=== PATIENT | female | born 1985 | race Caucasian/White ===

== ENCOUNTER 2019-03-24 08:11 | Emergency (ER) | payer BC ==
[2019-03-24] MEDS ORDERED: Sodium Chloride 0.9% 1,000 ML IV STA (08:47)
[2019-03-24] MEDS ORDERED: Ondansetron 4 MG/2 ML SDV IVPUSH ONE (08:47)
[2019-03-24] MEDS ORDERED: Sodium Chloride 0.9% 10 ML Syringe FLUSH PRN ×2 (08:47→10:02)
[2019-03-24] MEDS ORDERED: HYDROmorphone 1 MG/ML Syringe IVPUSH ONE (08:52)
--- NOTE | 2019-03-24 09:39 | EDM.PDOC ---
ED HPI GENERAL MEDICAL PROBLEM - General Chief Complaint: Abdominal Pain Stated Complaint: ABDOMINAL PAIN Time Seen by Provider: 03/24/19 08:35 Source of Information: Reports: Patient History Limitations: Reports: No Limitations - History of Present Illness INITIAL COMMENTS - FREE TEXT/NARRATIVE: The patient presents with abdominal pain and nausea. This has been going on for over a week. She was seen at the walk in clinic yesterday and the pain is much worse. She has nausea but no vomiting. She has no fever, chills, cough, chest pain or shortness of breath. She still has her gallbladder and appendix. She does not think she is . She had a tubal ligation. She has no dysuria or diarrhea. Onset: Gradual Duration: Week(s): (1) Location: Reports: Abdomen Quality: Reports: Sharp Severity: Severe Improves with: Reports: None Worsens with: Reports: None Associated Symptoms: Reports: Nausea/Vomiting. Denies: Chest Pain, Fever/Chills , Headaches, Shortness of Breath Abdomen Pain Score (Numeric/FACES): 10 - Related Data Allergies Allergy/AdvReac Type Severity Reaction Status Date / Time iodine Allergy Mild Hives Verified 03/24/19 10:19 Home Meds: Home Meds . [No Known Home Meds] 03/24/19 [History] Past Medical History - Past Surgical History HEENT Surgical History: Reports: Adenoidectomy, Tonsillectomy GI Surgical History: Reports: Other (See Below) Other GI Surgeries/Procedures: splenectomy Female Surgical History: Reports: Tubal Ligation Social & Family History - Tobacco Use Smoking Status *Q: Never Smoker - Caffeine Use Caffeine Use: Reports: Coffee - Recreational Drug Use Recreational Drug Use: No ED ROS GENERAL - Review of Systems Review Of Systems: See Below Constitutional: Reports: No Symptoms HEENT: Reports: No Symptoms Respiratory: Reports: No Symptoms Cardiovascular: Reports: No Symptoms Endocrine: Reports: No Symptoms GI/Abdominal: Reports: Abdominal Pain, Nausea, Vomiting. Denies: Diarrhea : Reports: No Symptoms Musculoskeletal: Reports: No Symptoms ED EXAM, GI/ABD - Physical Exam Exam: See Below Exam Limited By: No Limitations General Appearance: Alert, Moderate Distress Ears: Normal External Exam Nose: Normal Inspection Head: Atraumatic, Normocephalic Neck: Normal Inspection Respiratory/Chest: No Respiratory Distress, Lungs Clear, Normal Breath Sounds Cardiovascular: Regular Rate, Rhythm, No Edema, No Murmur GI/Abdominal Exam: Soft, No Organomegaly, No Mass, Tender (Severe generalized tenderness) Course - Vital Signs Last Recorded V/S: Last Vital Signs Temp 98.8 F 03/24/19 08:35 Pulse 91 03/24/19 09:22 Resp 16 03/24/19 09:22 BP 109/65 03/24/19 09:22 Pulse Ox 95 03/24/19 09:22 - Orders/Labs/Meds Orders: Active Orders 24 hr Category Date Time Status Peripheral IV Care [RC] . DIRECTED Care 03/24/19 08:47 Active TWAN W/REFLEX [REF] Stat Lab 03/24/19 15:09 Received CBC W/O DIFF,HEMOGRAM [HEME] MOTH@0700 Lab 03/26/19 07:00 Ordered CBC W/O DIFF,HEMOGRAM [HEME] MOTH@0700 Lab 03/30/19 07:00 Ordered CBC W/O DIFF,HEMOGRAM [HEME] MOTH@0700 Lab 04/02/19 07:00 Ordered CBC W/O DIFF,HEMOGRAM [HEME] MOTH@0700 Lab 04/06/19 07:00 Ordered CBC W/O DIFF,HEMOGRAM [HEME] MOTH@0700 Lab 04/09/19 07:00 Ordered CBC W/O DIFF,HEMOGRAM [HEME] MOTH@0700 Lab 04/13/19 07:00 Ordered FACTOR V LEIDEN MUTATION [REF] Stat Lab 03/24/19 15:09 Received INR,PT,PROTHROMBIN TIME [COAG] Routine Lab 03/24/19 14:35 Ordered Heparin Sodium/D5W [Heparin 25,000 Units in D5W 500 ML] Med 03/24/19 14:45 Active 25,000 units in 500 ml IV TITRATE Sodium Chloride 0.9% [Saline Flush] Med 03/24/19 08:47 Active 10 ml FLUSH ASDIRECTED PRN Sodium Chloride 0.9% [Saline Flush] Med 03/24/19 10:02 Active 10 ml FLUSH ONETIME PRN ED Antiemetic Medication Reflex [OM.PC] Stat Oth 03/24/19 08:47 Ordered Peripheral IV Insertion Adult [OM.PC] Stat Oth 03/24/19 08:47 Ordered Medication Orders Heparin Sodium/Dextrose (Heparin 25,000 Units In D5w 500 Ml) 25,000 units in 500 mls @ 19.731 mls/hr IV TITRATE JUANJOSE; Protocol Last Admin: 03/24/19 14:48 Dose: 15 units/kg/hr, 19.731 mls/hr Sodium Chloride (Saline Flush) 10 ml FLUSH ASDIRECTED PRN PRN Reason: Keep Vein Open Last Admin: 03/24/19 08:58 Dose: 10 ml Sodium Chloride (Saline Flush) 10 ml FLUSH ONETIME PRN PRN Reason: IV FLUSH Last Admin: 03/24/19 10:24 Dose: 10 ml Labs: Laboratory Tests 03/24/19 03/24/19 03/24/19 Range/Units 08:50 08:50 08:50 WBC 10.69 H (3.98-10.04) K/mm3 RBC 4.28 (3.98-5.22) M/mm3 Hgb 12.0 (11.2-15.7) gm/dl Hct 36.7 (34.1-44.9) % MCV 85.7 (79.4-94.8) fl MCH 28.0 (25.6-32.2) pg MCHC 32.7 (32.2-35.5) g/dl RDW Std Deviation 50.6 H (36.4-46.3) fL Plt Count 388 H (182-369) K/mm3 MPV 10.4 (9.4-12.3) fl Neut % (Auto) 68.6 (34.0-71.1) % Lymph % (Auto) 16.7 L (19.3-51.7) % Placer % (Auto) 12.9 H (4.7-12.5) % Eos % (Auto) 1.0 (0.7-5.8) Baso % (Auto) 0.6 (0.1-1.2) % Neut # (Auto) 7.33 H (1.56-6.13) K/mm3 Lymph # (Auto) 1.79 (1.18-3.74) K/mm3 Placer # (Auto) 1.38 H (0.24-0.36) K/mm3 Eos # (Auto) 0.11 (0.04-0.36) K/mm3 Baso # (Auto) 0.06 (0.01-0.08) K/mm3 Manual Slide Review Normal smear Sodium 135 L (136-145) mEq/L Potassium 3.6 (3.5-5.1) mEq/L Chloride 101 (98-107) mEq/L Carbon Dioxide 18 L (21-32) mEq/L Anion Gap 19.6 H (5-15) BUN 9 (7-18) mg/dL Creatinine 0.7 (0.55-1.02) mg/dL Est Cr Clr Drug Dosing 92.10 mL/min Estimated GFR (MDRD) > 60 (>60) mL/min BUN/Creatinine Ratio 12.9 L (14-18) Glucose 119 H (74-106) mg/dL Calcium 8.8 (8.5-10.1) mg/dL Total Bilirubin 0.8 (0.2-1.0) mg/dL AST 21 (15-37) U/L ALT 23 (14-59) U/L Alkaline Phosphatase 78 (46-116) U/L Total Protein 8.0 (6.4-8.2) g/dl Albumin 3.4 (3.4-5.0) g/dl Globulin 4.6 gm/dL Albumin/Globulin Ratio 0.7 L (1-2) Lipase 95 (73-393) U/L HCG, Qual Negative (NEGATIVE) Urine Color (Yellow) Urine Appearance (Clear) Urine pH (5.0-8.0) Ur Specific [place] (1.005-1.030) Urine Protein (Negative) Urine Glucose (UA) (Negative) Urine Ketones (Negative) Urine Occult Blood (Negative) Urine Nitrite (Negative) Urine Bilirubin (Negative) Urine Urobilinogen (0.2-1.0) Ur Leukocyte Esterase (Negative) Urine RBC (0-5) /hpf Urine WBC (0-5) /hpf Ur Squamous Epith Cells (0-5) /hpf Urine Bacteria (FEW) /hpf Urine Mucus (FEW) /hpf 03/24/19 Range/Units 12:05 WBC (3.98-10.04) K/mm3 RBC (3.98-5.22) M/mm3 Hgb (11.2-15.7) gm/dl Hct (34.1-44.9) % MCV (79.4-94.8) fl MCH (25.6-32.2) pg MCHC (32.2-35.5) g/dl RDW Std Deviation (36.4-46.3) fL Plt Count (182-369) K/mm3 MPV (9.4-12.3) fl Neut % (Auto) (34.0-71.1) % Lymph % (Auto) (19.3-51.7) % Placer % (Auto) (4.7-12.5) % Eos % (Auto) (0.7-5.8) Baso % (Auto) (0.1-1.2) % Neut # (Auto) (1.56-6.13) K/mm3 Lymph # (Auto) (1.18-3.74) K/mm3 Placer # (Auto) (0.24-0.36) K/mm3 Eos # (Auto) (0.04-0.36) K/mm3 Baso # (Auto) (0.01-0.08) K/mm3 Manual Slide Review Sodium (136-145) mEq/L Potassium (3.5-5.1) mEq/L Chloride (98-107) mEq/L Carbon Dioxide (21-32) mEq/L Anion Gap (5-15) BUN (7-18) mg/dL Creatinine (0.55-1.02) mg/dL Est Cr Clr Drug Dosing mL/min Estimated GFR (MDRD) (>60) mL/min BUN/Creatinine Ratio (14-18) Glucose (74-106) mg/dL Calcium (8.5-10.1) mg/dL Total Bilirubin (0.2-1.0) mg/dL AST (15-37) U/L ALT (14-59) U/L Alkaline Phosphatase (46-116) U/L Total Protein (6.4-8.2) g/dl Albumin (3.4-5.0) g/dl Globulin gm/dL Albumin/Globulin Ratio (1-2) Lipase (73-393) U/L HCG, Qual (NEGATIVE) Urine Color Yellow (Yellow) Urine Appearance Clear (Clear) Urine pH 6.5 (5.0-8.0) Ur Specific [place] 1.010 (1.005-1.030) Urine Protein Negative (Negative) Urine Glucose (UA) Negative (Negative) Urine Ketones 2+ H (Negative) Urine Occult Blood Negative (Negative) Urine Nitrite Negative (Negative) Urine Bilirubin Negative (Negative) Urine Urobilinogen 0.2 (0.2-1.0) Ur Leukocyte Esterase Negative (Negative) Urine RBC 0-5 (0-5) /hpf Urine WBC 0-5 (0-5) /hpf Ur Squamous Epith Cells 0-5 (0-5) /hpf Urine Bacteria Many H (FEW) /hpf Urine Mucus Not seen (FEW) /hpf Meds: Medications Generic Name Dose Route Start Last Admin Trade Name José Miguel PRN Reason Stop Dose Admin Heparin Sodium/Dextrose 25,000 units in 500 mls @ 19.731 mls/hr 03/24/19 14: 45 03/24/19 14:48 Heparin 25,000 Units In D5w 500 Ml IV 15 units/kg/hr TITRATE JUANJOSE 19.731 mls/hr Administration Protocol 15 UNITS/KG/HR Sodium Chloride 10 ml 03/24/19 08:47 03/24/19 08:58 Saline Flush FLUSH 10 ml ASDIRECTED PRN Administration Keep Vein Open Sodium Chloride 10 ml 03/24/19 10:02 03/24/19 10:24 Saline Flush FLUSH 10 ml ONETIME PRN Administration IV FLUSH Discontinued Medications Generic Name Dose Route Start Last Admin Trade Name José Miguel PRN Reason Stop Dose Admin Diatrizoate Meglum/Diatrizoate Sod 120 ml 03/24/19 10:02 03/24/19 10:24 Gastrografin 37% PO 03/24/19 10:03 90 ml ONETIME ONE Administration Diphenhydramine HCl Confirm 03/24/19 10:15 03/24/19 10:24 Benadryl Administered 03/24/19 10:16 Not Given Dose 50 mg .ROUTE .STK-MED ONE Diphenhydramine HCl 50 mg 03/24/19 10:22 03/24/19 10:17 Benadryl IVPUSH 03/24/19 10:23 50 mg ONETIME ONE Administration Heparin Sodium (Porcine) 4,000 units 03/24/19 14:33 03/24/19 14:53 Heparin Sodium IVPUSH 03/24/19 14:34 4,000 units ONETIME ONE Administration Hydromorphone HCl 1 mg 03/24/19 08:52 03/24/19 08:58 Dilaudid IVPUSH 03/24/19 08:53 1 mg ONETIME ONE Administration Hydromorphone HCl 0.5 mg 03/24/19 12:22 03/24/19 12:59 Dilaudid IVPUSH 03/24/19 12:23 0.5 mg ONETIME ONE Administration Sodium Chloride 1,000 mls @ 1,000 mls/hr 03/24/19 08:47 03/24/19 08:58 Normal Saline IV 03/24/19 09:46 1,000 mls/hr .BOLUS STA Administration Iopamidol 100 ml 03/24/19 10:02 03/24/19 10:24 Isovue-300 (61%) IVPUSH 03/24/19 10:03 100 ml ONETIME ONE Administration Ondansetron HCl 4 mg 03/24/19 08:47 03/24/19 08:58 Zofran IVPUSH 03/24/19 08:48 4 mg ONETIME ONE Administration Warfarin Sodium 5 mg 03/24/19 14:35 03/24/19 14:46 Coumadin PO 03/24/19 14:36 5 mg ONETIME ONE Administration - Re-Assessments/Exams Free Text/Narrative Re-Assessment/Exam: 03/24/19 09:40 I ordered an IV NS 1L bolus, zofran 4mg IV, dilaudid 1mg IV, labs, UA and a CT of her abdomen and pelvis with IV and oral contrast. 03/24/19 14:36 Her WBC was slightly elevated at 10.69. Her Na was a little low at 135. Her anion gap is elevated at 19.6. Her lipase is normal. Her HCG is negative. Her UA is negative for UTI. Her CT shows inflammatory change off the inferior pancreas presumably representing pancreatitis. Please correlate if patient has correlating laboratory findings. Nonopacified superior mesenteric vein and portal vein despite delayed images. Difficult to exclude thrombosis. US could be obtained to make sure the portal vein is patent. Small hiatal hernia and other findings believed to be incidental. I ordered an US and that showed probable portal vein thrombosis with surrounding edema around the portal vein. This makes likelihood of superior mesenteric vein thrombosis more likely. CT study was reviewed and there is felt to be mesenteric congestion present. Previously noted suggestion of pancreatitis is the most likely etiology of the portal vein and superior mesenteric findings. I called Dr Ranada our hospitalist and he did not feel comfortable admitting the patient. I called [facility] in [place] and talked with Dr Fernandez and he accepted the patient. He wanted a heparin bolus and drip, coumadin, TWAN and factor V leidin. Departure - Departure Time of Disposition: 15:25 Disposition: DC/Tfer to Acute Hospital 02 Condition: Fair Clinical Impression: Portal vein thrombosis, Superior mesenteric vein thrombosis Pancreatitis Qualifiers: Chronicity: acute Pancreatitis type: unspecified pancreatitis type Acute pancreatitis complication: no infection or necrosis Qualified Code(s): K85.90 - Acute pancreatitis without necrosis or infection, unspecified - Discharge Information Referrals: PCP,None [Primary Care Provider] - Forms: ED Department Discharge Sepsis Event Note - Evaluation Sepsis Screening Result: No Definite Risk - Focused Exam Vital Signs: Vital Signs Temp Pulse Resp BP Pulse Ox 03/24/19 09:22 91 16 109/65 95 03/24/19 08:35 98.8 F 123 H 20 140/107 H 97 Date Exam was Performed: 03/24/19 Time Exam was Performed: 15:14 - My Orders Last 24 Hours: My Active Orders 03/24/19 08:47 Peripheral IV Care [RC] . DIRECTED Sodium Chloride 0.9% [Saline Flush] 10 ml FLUSH ASDIRECTED PRN ED Antiemetic Medication Reflex [OM.PC] Stat Peripheral IV Insertion Adult [OM.PC] Stat 03/24/19 10:02 Sodium Chloride 0.9% [Saline Flush] 10 ml FLUSH ONETIME PRN 03/24/19 14:35 INR,PT,PROTHROMBIN TIME [COAG] Routine 03/24/19 14:45 Heparin Sodium/D5W [Heparin 25,000 Units in D5W 500 ML] 25,000 units in 500 ml IV TITRATE 03/24/19 15:09 TWAN W/REFLEX [REF] Stat FACTOR V LEIDEN MUTATION [REF] Stat 03/26/19 07:00 CBC W/O DIFF,HEMOGRAM [HEME] MOTH@0700 03/30/19 07:00 CBC W/O DIFF,HEMOGRAM [HEME] MOTH@0700 04/02/19 07:00 CBC W/O DIFF,HEMOGRAM [HEME] MOTH@0700 04/06/19 07:00 CBC W/O DIFF,HEMOGRAM [HEME] MOTH@0700 04/09/19 07:00 CBC W/O DIFF,HEMOGRAM [HEME] MOTH@0700 04/13/19 07:00 CBC W/O DIFF,HEMOGRAM [HEME] MOTH@07 - Assessment/Plan Last 24 Hours: My Active Orders 03/24/19 08:47 Peripheral IV Care [RC] . DIRECTED Sodium Chloride 0.9% [Saline Flush] 10 ml FLUSH ASDIRECTED PRN ED Antiemetic Medication Reflex [OM.PC] Stat Peripheral IV Insertion Adult [OM.PC] Stat 03/24/19 10:02 Sodium Chloride 0.9% [Saline Flush] 10 ml FLUSH ONETIME PRN 03/24/19 14:35 INR,PT,PROTHROMBIN TIME [COAG] Routine 03/24/19 14:45 Heparin Sodium/D5W [Heparin 25,000 Units in D5W 500 ML] 25,000 units in 500 ml IV TITRATE 03/24/19 15:09 TWAN W/REFLEX [REF] Stat FACTOR V LEIDEN MUTATION [REF] Stat 03/26/19 07:00 CBC W/O DIFF,HEMOGRAM [HEME] MOTH@0700 03/30/19 07:00 CBC W/O DIFF,HEMOGRAM [HEME] MOTH@0700 04/02/19 07:00 CBC W/O DIFF,HEMOGRAM [HEME] MOTH@0704/06/19 07:00 CBC W/O DIFF,HEMOGRAM [HEME] MOTH@0700 04/09/19 07:00 CBC W/O DIFF,HEMOGRAM [HEME] MOTH@0700 04/13/19 07:00 CBC W/O DIFF,HEMOGRAM [HEME] MOTH@07
[2019-03-24] MEDS ORDERED: Diatrizoate Meglumine/Diatrizoate Sodium 37% 120 ML Bottle PO ONE (10:02)
[2019-03-24] MEDS ORDERED: Iopamidol 612 MG/ML 100 ML Bottle IVPUSH ONE (10:02)
[2019-03-24] MEDS ORDERED: diphenhydrAMINE 50 MG/ML SDV ONE (10:15)
[2019-03-24] MEDS ORDERED: diphenhydrAMINE 50 MG/ML SDV IVPUSH ONE (10:22)
--- NOTE | 2019-03-24 11:58 | CT ---
CT abdomen and pelvis Technique: Multiple axial sections were obtained from above the dome of the diaphragm inferiorly through the pubic symphysis. Intravenous contrast was utilized. Oral contrast is also noted. Delayed images were obtained through the abdomen and pelvis. Comparison: No prior abdominal imaging is available. Findings: Inflammatory change is seen inferior to the pancreatic head. Findings raise the possibility of pancreatitis. No portal vein opacification or superior mesenteric vein opacification is seen despite the delayed images. Difficult to exclude thrombosis within the superior mesenteric vein and portal vein. Small hiatal hernia is noted. Visualized lung bases show nothing acute. Slight intrahepatic biliary air is noted. Gallbladder contains no calcified gallstones. Kidneys show symmetric contrast enhancement without hydronephrosis or mass. Adrenal glands show no nodule. Aorta shows no aneurysm. No retroperitoneal adenopathy is seen. Appendix not visualized with certainty. No pelvic mass or adenopathy is seen. Delayed images show contrast excretion from both kidneys. Contrast is noted within the bladder. There is a filling defect noted within the right side of the bladder presumably due to debris. Impression: 1. Inflammatory change off the inferior pancreas presumably representing pancreatitis. Please correlate if patient has correlating laboratory findings. 2. Nonopacified superior mesenteric vein and portal vein despite delayed images. Difficult to exclude thrombosis. Ultrasound could be obtained to make sure the portal vein is patent. 3. Small hiatal hernia and other findings believed to be incidental. Diagnostic code #3 This report was dictated in [place] Standard Time
[2019-03-24] MEDS ORDERED: HYDROmorphone 0.5 MG/0.5 ML Syringe IVPUSH ONE (12:22)
--- NOTE | 2019-03-24 13:37 | US ---
Limited abdominal ultrasound: Multiple real-time images of the upper right abdomen were obtained. Comparison: Previous CT abdomen and pelvis study performed earlier on same day (10:20 AM) Portal vein is poorly seen and is believed to be thrombosed. Edema is noted around the portal vein. This makes the likelihood of superior mesenteric vein thrombosis highly likely. Pancreas remains a possibility as the etiology for this finding. When reviewing previous CT exam the mesenteric vessels appear to be congested. Liver is not optimally seen. Pancreas also poorly seen due to bowel gas. Inferior vena cava is patent. Impression: 1. Probable portal vein thrombosis with surrounding edema around the portal vein. This makes likelihood of superior mesenteric vein thrombosis more likely. 2. CT study was reviewed and there is felt to be mesenteric congestion present. 3. Previously noted suggestion of pancreatitis is the most likely etiology of the portal vein and superior mesenteric findings. Diagnostic code #5 This report was dictated in [place] Standard Time
[2019-03-24] MEDS ORDERED: Heparin Sodium 5,000 Units/ML Vial IVPUSH ONE (14:33)
[2019-03-24] MEDS ORDERED: Warfarin 5 MG Tab PO ONE (14:35)
[2019-03-24] MEDS ORDERED: Heparin Sodium/D5W 25,000 UNITS/500 ML BAG IV SCH (14:45)
== END 2019-03-24 15:20 ==
LOC: JD.ED 08:11
DX: I81 Portal vein thrombosis (principal); K55.069 Acute infarction of intestine, part and extent unspecified; K85.90 Acute pancreatitis without necrosis or infection, unspecified; D72.829 Elevated white blood cell count, unspecified; E87.1 Hypo-osmolality and hyponatremia; E87.2 Acidosis; K44.9 Diaphragmatic hernia without obstruction or gangrene; Z88.8 Allergy status to other drugs, medicaments and biological substances
CPT/HCPCS: 36415; 74177; 76705; 80053; 81001; 81241; 83690; 84703; 85025; 85610; 86038; 96361; 96365; 96375; 96376; 99285; A9270; J1170; J1200; J1644; J2405; J7030; Q9963; Q9967; 99284

== ENCOUNTER 2022-01-27 12:44 | Emergency (ER) | payer BC, OTHER ==
[2022-01-27] MEDS ORDERED: Sodium Chloride 0.9% 10 ML Syringe FLUSH PRN (14:51)
[2022-01-27] MEDS ORDERED: Ondansetron 4 MG/2 ML SDV IVPUSH ONE (14:51)
[2022-01-27] MEDS ORDERED: Sodium Chloride 0.9% 1,000 ML IV SCH (15:00)
[2022-01-27] MEDS ORDERED: HYDROmorphone 0.5 MG/0.5 ML Syringe IVPUSH ONE ×3 (15:47→21:50)
[2022-01-27 15:55] LABS: ESTIMATED GFR 116 mL/min (>60)
[2022-01-27] MEDS ORDERED: Iopamidol 612 MG/ML 100 ML Bottle IVPUSH ONE (17:38)
[2022-01-27] MEDS ORDERED: Sodium Chloride 0.9% 10 ML Syringe FLUSH ONE (17:38)
== END 2022-01-27 22:28 | disposition home or self-care (01) ==
LOC: JD.ED 12:44
DX: K85.80 Other acute pancreatitis without necrosis or infection (principal); K86.89 Other specified diseases of pancreas; Z86.16 Personal history of COVID-19
CPT/HCPCS: 36415; 74177; 74177-26; 76705; 76705-26; 80053; 81001; 83605; 83690; 83735; 84702; 85025; 86140; 87086; 96374; 96375; 96376; 99284-25; J1170; J2405; J3490; J7030; Q9967

== ENCOUNTER 2022-02-27 15:54 | Emergency (ER) | payer OTHER ==
[2022-02-27] MEDS ORDERED: Sodium Chloride 0.9% 10 ML Syringe FLUSH PRN (16:15)
[2022-02-27] MEDS ORDERED: Acetaminophen 325 MG Tab PO ONE (16:27)
[2022-02-27] MEDS ORDERED: Sodium Chloride 0.9% 1,000 ML IV ONE (16:36)
[2022-02-27] MEDS ORDERED: Ondansetron 4 MG/2 ML SDV IVPUSH ONE (16:36)
[2022-02-27 17:52] LABS: CORONAVIRUS COVID-19 NAA NEGATIVE (NEGATIVE)
== END 2022-02-27 19:06 | disposition home or self-care (01) ==
LOC: JD.ED 15:54
DX: N93.8 Other specified abnormal uterine and vaginal bleeding (principal); Z86.16 Personal history of COVID-19; Z79.01 Long term (current) use of anticoagulants; Z20.822 Contact with and (suspected) exposure to COVID-19
CPT/HCPCS: 0240U; 36415; 80053; 85025; 85610; 85730; 86850; 86900; 86901; 96361; 96374; 99284; A9270; J2405; J3490; J7030

== ENCOUNTER 2022-04-27 18:01 | Emergency (ER) | payer SELFPAY ==
[2022-04-27] MEDS ORDERED: HYDROmorphone 0.5 MG/0.5 ML Syringe IVPUSH ONE ×2 (18:52→20:01)
[2022-04-27] MEDS ORDERED: Sodium Chloride 0.9% 1,000 ML IV ONE ×2 (18:52→21:22)
[2022-04-27] MEDS ORDERED: Metoclopramide 10 MG/2 ML SDV IVPUSH ONE (18:52)
[2022-04-27] MEDS ORDERED: Iopamidol 612 MG/ML 100 ML Bottle IVPUSH ONE (19:13)
[2022-04-27] MEDS ORDERED: Sodium Chloride 0.9% 10 ML Syringe FLUSH ONE (19:13)
[2022-04-27] MEDS ORDERED: diphenhydrAMINE 50 MG/ML SDV IVPUSH ONE (20:01)
[2022-04-27] MEDS ORDERED: Ondansetron 4 MG/2 ML SDV IVPUSH ONE (20:01)
[2022-04-27] MEDS ORDERED: Dicyclomine 10 MG Cap PO ONE (20:11)
[2022-04-27] MEDS ORDERED: Acetaminophen 325 MG Tab PO ONE (21:23)
== END 2022-04-27 22:57 | disposition home or self-care (01) ==
LOC: JD.ED 18:01
DX: R10.84 Generalized abdominal pain (principal); Z86.16 Personal history of COVID-19
CPT/HCPCS: 36415; 74177; 80053; 81001; 83690; 84703; 85025; 86140; 96361; 96374; 96375; 96376; 99283; A9270; J1170; J1200; J2405; J2765; J3490; J7030; Q9967